=== PATIENT | female | born 1970 | race Caucasian/White ===

== ENCOUNTER 2017-09-09 00:47 | Inpatient (IN) | payer SELFPAY ==
[~2017-09-09] VITALS: Ht 170.2 cm; Wt 65.8 kg
--- NOTE | 2017-09-09 01:26 | NUR ---
PT AMBULATORY TO ER BED 7. PT BIB FAMILY FROM HOME, PT C/O ABD PAIN WITH N/V/D X 3 DAYS. PT PLACED ON COPPER MINER BLASTING. VSS/RESP EVEN UNLABORED/NAD NOTED/SKIN WARM AND DRY/AFEBRILE/AOX4. AWAITING MD YOO.
[2017-09-09] MEDS ORDERED: IV NS 0.9% 1,000 ML BAG IV ONE (02:00)
[2017-09-09] MEDS ORDERED: ONDANSETRON HCL/PF 4 MG/2 ML VIAL IVP ONE (02:00)
--- NOTE | 2017-09-09 02:05 | NUR ---
LAB AT BEDSIDE TO DRAW.
[2017-09-09 02:15] LABS: APPEARANCE,URINE SL CLOUDY (CLEAR); BILIRUBIN,URINE 1+ (NEGATIVE); BLOOD, URINE 3+ Ery/uL (NEGATIVE); COLOR,URINE ORANGE (YELLOW); KETONES,URINE 2+ (NEGATIVE); LEUKOCYTE ESTERASE ,URINE TRACE (NEGATIVE); NITRITE, URINE NEGATIVE (NEGATIVE); PH,URINE 6.5 (5.0-8.0); PROTEIN,URINE 2+ mg/dl (NEGATIVE); UGLUCOSE NEGATIVE (NEGATIVE); UROBILINOGEN,URINE 0.2 EU/dL (0.2)
[2017-09-09 02:15] LABS: BASOPHILS # (AUTO) 0.1 /CMM (0.0-0.2); BASOPHILS % (AUTO) 0.3 % (0.0-2.0); EOSINOPHILS % (AUTO) 0.1 % (0.0-6.0); HEMATOCRIT 39 % (33-45); HEMOGLOBIN 13.3 g/dL (11.5-14.8); MEAN CORPUSCULAR HEMOGLOBIN 29 PG (26.0-33.0); MEAN CORPUSCULAR HGB CONC 34 g/dl (31.0-36.0); MEAN CORPUSCULAR VOLUME 85 fL (82-100); MONOCYTES % (AUTO) 5.4 % (2.0-12.0); NEUTROPHILS # (AUTO) 15.1 /CMM (1.8-8.9); NEUTROPHILS % (AUTO) 83.2 % (43.0-81.0); PLATELET COUNT (AUTO) 397 /CMM (150-450); RDW COEFFICIENT OF VARIATION 14.4 (11.5-15.0); RED BLOOD CELL COUNT(AUTO) 4.58 MIL/uL (4.0-5.2); WHITE BLOOD COUNT (AUTO) 18.2 K/uL (4.3-11.0)
--- NOTE | 2017-09-09 02:19 | NUR ---
AT BEDSIDE FOR EVAL.
[2017-09-09] MEDS ORDERED: ONDANSETRON HCL/PF 4 MG/2 ML VIAL ONE ×2 (02:20→07:29)
--- NOTE | 2017-09-09 02:25 | NUR ---
20G IV X 1 ATTEMPT TO L AC USING ASEPTIC TECH, IV FLUSHES EASILY WITH NS, NO S/S INFILTRATION.
[2017-09-09 02:30] LABS: ALBUMIN 3.7 g/dL (3.4-5.0); BILIRUBIN,DIRECT 0.1 mg/dL (0.0-0.2); BILIRUBIN,TOTAL 0.5 mg/dL (0.2-1.0); CALCIUM, SERUM 9.2 mg/dL (8.5-10.1); CREATININE 0.9 mg/dL (0.6-1.3); POTASSIUM 3.6 mmol/L (3.5-5.1); TOTAL PROTEIN, SERUM 8.6 g/dL (6.4-8.2)
[2017-09-09 02:30] LABS: BACTERIA,URINE 2+ /HPF (None Seen); RBC,URINE 21-50 /HPF (0-2); SQUAMOUS EPITHELIAL CELL,UR Many /HPF (None Seen); WBC,URINE 51-80 /HPF (0-3)
[2017-09-09 02:31] LABS: MUCUS,URINE Moderate /LPF (None Seen)
--- NOTE | 2017-09-09 02:58 | NUR ---
PT TO CT VIA W/C.
[2017-09-09] MEDS ORDERED: METOCLOPRAMIDE HCL 10 MG/2 ML VIAL IV ONE (03:30)
[2017-09-09] MEDS ORDERED: CEFTRIAXONE 1GM BAG (ER ONLY) 1 GM/50 ML PIGGYBACK IV ONE (03:30)
[2017-09-09] MEDS ORDERED: CEFTRIAXONE 1GM BAG (ER ONLY) 50 ML IV ONE (03:34)
--- NOTE | 2017-09-09 03:40 | NUR ---
PANEL PAGER YAZMIN CANDELARIO ORDER.
--- NOTE | 2017-09-09 03:40 | NUR ---
MEDICATED PER MD ORDERS.
--- NOTE | 2017-09-09 06:20 | NUR ---
ULTRASOUND AT BEDSIDE.
--- NOTE | 2017-09-09 07:14 | NUR ---
ENDORSED TO BEREKET ENG FOR VINITA.
--- NOTE | 2017-09-09 07:15 | NUR ---
RECEIVED REPORT FOR VINITA.
[2017-09-09] MEDS ORDERED: HYDROMORPHONE INJ 0.5 MG/0.5 ML SYRINGE ONE (07:29)
[2017-09-09] MEDS ORDERED: HYDROMORPHONE 1 MG/1 ML DISP.SYRIN IV ONE (07:30)
[2017-09-09] MEDS ORDERED: ONDANSETRON HCL/PF 4 MG/2 ML VIAL IV ONE (07:30)
--- NOTE | 2017-09-09 07:36 | NUR ---
PATIENT MEDICATED PER MD ORDERS.
[2017-09-09] MEDS ORDERED: ACETAMINOPHEN 650 MG/SUPP.RECT RC PRN ×2 (08:00→08:15)
[2017-09-09] MEDS ORDERED: MORPHINE SULFATE INJ 2 MG/ML DISP.SYRIN IV PRN (08:00)
[2017-09-09] MEDS ORDERED: ONDANSETRON HCL/PF 4 MG/2 ML VIAL IVP PRN ×3 (08:00→15:00)
[2017-09-09] MEDS ORDERED: PIPERACILLIN /TAZOBACTAM 3.375 G in IV D5W 100 ML IV SCH ×2 (08:00→09:30)
--- NOTE | 2017-09-09 08:11 | NUR ---
REPORT GIVEN TO ESTEFANI CUBA FOR VINITA UPON ADMISSION. PATIENT TRANSPORTED TO - VIA WHEELCHAIR.
[2017-09-09 08:40] VITALS: BP 103/56
[2017-09-09] MEDS ORDERED: FAMOTIDINE/PF INJ 20 MG/2 ML VIAL IV SCH (09:00)
[2017-09-09] MEDS ORDERED: HYDROMORPHONE INJ 0.5 MG/0.5 ML SYRINGE IV PRN ×3 (09:00→15:00)
[2017-09-09] MEDS: FAMOTIDINE/PF INJ 20 MG/2 ML VIAL IV SCH (09:15)
--- NOTE | 2017-09-09 09:24 | NUR ---
MS RN ADMITTING NOTES RECEIVED REPORT FROM ER NURSE ALBERTINA. PT ADMITTED TO UNIT VIA WHEELCHAIR A/O X4 AND VERBALLY RESPONSIVE, NO C/O ABDOMINAL PAIN OR DISCOMFORTS AT THIS TIME. PT WITH DX OF PANCREATITIS, ABDOMINAL PAIN, N & V. NO SIGNIFICANT SECONDARY DIAGNOSIS GIVEN BY PT. PT TRANSFERRED TO BED AND ROUTINE ASSESSMENT DONE. PT ORIENTED TO UNIT AND ROOM. V/S TAKEN AND RECORDED. SKIN IS INTACT. PT ON ROOM AIR, BREATHING EVEN AND UNLABORED. SHE HAS IV ACCESS ON LEFT AC G#20, INTACT AND PATENT, EASILY TO FLUSH WITH NS. ALL SAFETY MEASURES ENFORCED. BED PLACED ON LOW/LOCKED POSITION. CALL LIGHT AND BEDSIDE TABLE PLACED WITHIN EASY REACH OF PT. WILL CONTINUE TO MONITOR PT ACCORDINGLY.
[2017-09-09] MEDS ORDERED: PIPERACILLIN /TAZOBACTAM 3.375 G in IV NS 0.9% 100 ML IV SCH (10:00)
[2017-09-09] MEDS: Potassium Chloride 20 MEQ in IV D5/0.45 NACL 1,000 ML IV PRN (10:33)
--- NOTE | 2017-09-09 12:22 | NUR ---
RN NOTES DR KIM SEEN AND EVALUATED PT WITH ORDER TO DO LAPAROSCOPIC CHOLECYSTECTOMY, POSSIBLE OPEN. DR KIM EXPLAINED THE OPERATION TO PT AND PT VERBALIZED UNDERSTANDING. CONSENT SIGNED AND PRE-OP CHECKLIST DONE. WILL CONTINUE TO MONITOR
[2017-09-09] MEDS ORDERED: LIDOCAINE 1%-EPI 1:100,000 20 ML VIAL ONE (13:05)
[2017-09-09] MEDS ORDERED: BUPIVACAINE 0.25% 75 MG/30 ML VIAL ONE (13:05)
[2017-09-09] MEDS ORDERED: MIDAZOLAM HCL 2 MG/2ML VIAL ONE (13:14)
[2017-09-09] MEDS ORDERED: FENTANYL PF 100MCG/2ML AMPUL ONE (13:14)
[2017-09-09] MEDS ORDERED: ROCURONIUM BROMIDE 50 MG/5 ML ONE (13:14)
--- NOTE | 2017-09-09 13:20 | NUR ---
RN NOTES ASSISTED O.R. NURSE IN TRANSPORTING PT TO SURGERY VIA HER BED.
[2017-09-09 15:00] VITALS: BP 136/75
[2017-09-09] MEDS ORDERED: oxyCODONE/APAP (5/325 MG) 1 UDTAB TABLET PO PRN (15:00)
--- NOTE | 2017-09-09 15:06 | NUR ---
RN NOTES PATIENT RETURNED FROM SURGERY S/P LAPAROSCOPIC CHOLECYSTECTOMY OPERATED BY DR KIM. PT IS DROWSY BUT ABLE TO FOLLOW SIMPLE COMMANDS. V/S CHECKED: BP 136/75, P 85, R 16, T 98.6F AND SP02 95%. PT WITH 4 INCISIONS ON THE ABDOMEN: 2 AT MEDIAL ABDOMEN AND 2 ON RIGHT LOWER QUADRANTS, ALL DRESSINGS CLEAN, DRY, INTACT WITH NO ACTIVE BLEEDING NOTED. WILL CONTINUE TO MONITOR.
--- NOTE | 2017-09-09 15:22 | NUR ---
RN NOTES PER DR KIM, PT TO START ON CLEAR LIQUID, D5 1/2 NS + 20MEQ KCL DECREASED TO 100ML/HR FRO 150ML/HR AND TO START ON ANCEFT 1GM Q8HRS AND DISCONTINUE ABX.ZOSYN IV. FOR CBC,CMP AND LIPASE TOMORROW MORNING. PRN PAIN MEDS ORDERED WELL. WILL CARRY OUT ORDERS.
[2017-09-09 15:30] VITALS: BP 125/72
[2017-09-09 15:45] VITALS: BP 122/68
[2017-09-09 16:00] VITALS: BP 127/67
[2017-09-09] MEDS: CEFAZOLIN SODIUM 1 GM in IV SODIUM CHLORIDE 0.9% 50 ML IV SCH ×2 (16:25→21:05)
--- NOTE | 2017-09-09 18:42 | NUR ---
MS RN CLOSING NOTES PATIENT AWAKE AND RESTING AT MODERATE HIGH BACKREST IN BED. ALERT/ORIENTED X4. VERBALLY RESPONSIVE. S/P LAPAROSCOPIC CHOLECYSTECTOMY TODAY, 4 LAPAROSCOPIC INCISIONS DRESSINGS INTACT WITH NO ACTIVE BLEEDING NOTED. ON ROOM AIR, BREATHING EVEN AND UNLABORED. IV ACCESS ON LEFT AC G#18 INTACT AND PATENT WITH D5 1/2 NS + 20MEQ KCL INFUSING AT 100ML/HR, NO SIGNS OF INFILTRATION NOTED. KEPT HOB ELEVATED. BED IN LOW/LOCKED POSITION WITH SIDE RAILS UP X2. CALL LIGHT AND BEDSIDE TABLE PLACED WITHIN REACH OF PT. WILL ENDORSED TO SHINE WORKER NURSE FOR VINIAT.
--- NOTE | 2017-09-09 19:30 | NUR ---
RN NOTES RECEIVED PATIENT IN BED AWAKE, OA X 3, ABLE TO MAKE NEEDS KNOWN. NO ACUTE DISTRESS NOTED. DENIES ANY PAIN AT THIS TIME. IV SITE PATENT, INTACT; IVF INFUSING ORDERED. ABDOMINAL INCISION DRESSING INTACT; BOWEL SOUNDS PRESENT. SAFETY REMINDERS GIVEN. ON LOW BED WITH BILATERAL UPPER SIDE RAILS UP. CALL PRIDE WITHIN EASY REACH. WILL CONTINUE TO MONITOR.
[2017-09-09 20:00] VITALS: BP 118/71
[2017-09-10] MEDS: Potassium Chloride 20 MEQ in IV D5/0.45 NACL 1,000 ML IV PRN (05:46)
[2017-09-10] MEDS: CEFAZOLIN SODIUM 1 GM in IV SODIUM CHLORIDE 0.9% 50 ML IV SCH ×3 (05:46→20:11)
--- NOTE | 2017-09-10 06:30 | NUR ---
RN NOTES PATIENT ASLEEP, EASILY AROUSABLE. RESPIRATIONS EVEN. NO SIGNS OF PAIN AT THIS TIME. DUE MEDS GIVEN WITH NO ASE NOTED. NEEDS ATTENDED. SAFETY PRECAUTIONS AND COMFORT MEASURES IN PLACE. WILL GIVE REPORT TO DAY SHIFT FOR CONTINUITY OF CARE.
[2017-09-10 06:55] LABS: ALBUMIN 2.6 g/dL (3.4-5.0); BILIRUBIN,TOTAL 0.5 mg/dL (0.2-1.0); CREATININE 0.6 mg/dL (0.6-1.3); POTASSIUM 4.2 mmol/L (3.5-5.1); TOTAL PROTEIN, SERUM 6.7 g/dL (6.4-8.2)
--- NOTE | 2017-09-10 07:18 | NUR ---
MS RN OPENING NOTES PATIENT RECEIVED AWAKE IN BED IN NO ACUTE SIGNS OF DISTRESS. A/O X4. SAME VERBALLY RESPONSIVE. 4 LAPAROSCOPIC INCISIONS DRESSINGS INTACT WITH NO ACTIVE BLEEDING NOTED. ON ROOM AIR, BREATHING EVEN AND UNLABORED. IV ACCESS ON LEFT AC G#18 INTACT AND PATENT WITH D5 1/2 NS + 20MEQ KCL INFUSING @ 100ML/HR, NO SIGNS OF INFILTRATION NOTED. BED IN LOW/LOCKED POSITION WITH SIDE RAILS UP X2. CALL LIGHT AND BEDSIDE TABLE WITHIN REACH OF PT. WILL CONTINUE TO MONITOR.
[2017-09-10 08:00] VITALS: BP 101/59
[2017-09-10] MEDS: FAMOTIDINE/PF INJ 20 MG/2 ML VIAL IV SCH (08:36)
[2017-09-10 08:50] LABS: BASOPHILS # (AUTO) 0.1 /CMM (0.0-0.2); BASOPHILS % (AUTO) 0.4 % (0.0-2.0); EOSINOPHILS # (AUTO) 0.1 /CMM (0.0-0.7); EOSINOPHILS % (AUTO) 0.6 % (0.0-6.0); HEMATOCRIT 31 % (33-45); HEMOGLOBIN 10.6 g/dL (11.5-14.8); LYMPHOCYTES # (AUTO) 3.3 /CMM (0.8-4.8); LYMPHOCYTES % (AUTO) 25.9 % (20.0-44.0); MEAN CORPUSCULAR HEMOGLOBIN 30 PG (26.0-33.0); MEAN CORPUSCULAR HGB CONC 34 g/dl (31.0-36.0); MEAN CORPUSCULAR VOLUME 86 fL (82-100); MONOCYTES % (AUTO) 7.7 % (2.0-12.0); NEUTROPHILS # (AUTO) 8.4 /CMM (1.8-8.9); NEUTROPHILS % (AUTO) 65.4 % (43.0-81.0); PLATELET COUNT (AUTO) 262 /CMM (150-450); RDW COEFFICIENT OF VARIATION 14.4 (11.5-15.0); RED BLOOD CELL COUNT(AUTO) 3.59 MIL/uL (4.0-5.2); WHITE BLOOD COUNT (AUTO) 12.8 K/uL (4.3-11.0)
--- NOTE | 2017-09-10 09:47 | NUR ---
BEREKET PEPPER PATIENT JUST STARTED ON HEMODIALYSIS VIA RIGHT FEMORAL ARTERY. PRE HD V/S: 138/78MMHG, P 103, R 18, T 98.9F, SP02 96%. WILL CONTINUE TO MONITOR Addendum: 09/10/17 at 0953 by WILIAM LOWE RN ERROR: WRONG PTSHANTELLE IS FOR RM [id number]
--- NOTE | 2017-09-10 11:25 | NUR ---
RN NOTES PT SEEN AND EVALUATED BY DR KIM WITH ORDER TO START PT ON REGULAR DIET TOLERATED WILL CONTINUE TO MONITOR.
[2017-09-10 16:00] VITALS: BP 106/67
--- NOTE | 2017-09-10 18:33 | NUR ---
MS RN CLOSING NOTES PATIENT RESTING IN BED AT MODERATE HIGH BACKREST. ALERT/ORIENTED X4. VERBALLY RESPONSIVE. ALL NEEDS AND CARE ATTENDED WELL. ON ROOM AIR, BREATHING EVEN AND UNLABORED. IV ACCESS ON LEFT AC G#18 INTACT AND PATENT WITH D5 1/2 NS + 20MEQ KCL INFUSING AT 100ML/HR, NO SIGNS OF INFILTRATION NOTED. KEPT HOB ELEVATED. BED IN LOW/LOCKED POSITION WITH SIDE RAILS UP X2. CALL LIGHT AND BEDSIDE TABLE PLACED WITHIN REACH OF PT. 4 LAPAROSCOPIC INCISIONS ON THE ABDOMEN DRESSINGS INTACT WITH NO ACTIVE BLEEDING NOTED. WILL ENDORSED TO HIGH RIGGER NURSE FOR VINITA.
--- NOTE | 2017-09-10 19:30 | NUR ---
RN NOTES RECEIVED PATIENT IN BED AWAKE, OA X 3, ABLE TO MAKE NEEDS KNOWN. NO ACUTE DISTRESS NOTED. 5/10 LOW BACK PAIN. NO OTHER PAIN. IV SITE PATENT, INTACT; IVF INFUSING ORDERED. ABDOMINAL INCISION DRESSING INTACT; BOWEL SOUNDS PRESENT. SAFETY REMINDERS GIVEN. ON LOW BED WITH BILATERAL UPPER SIDE RAILS UP. CALL PRIDE WITHIN EASY REACH. WILL CONTINUE TO MONITOR.
[2017-09-10 20:00] VITALS: BP 119/69
--- NOTE | 2017-09-10 22:15 | NUR ---
RN NOTES DR. MENDOSA MADE AWARE OF PATIENT'S BACK PAIN 05/09; NOT RELIEVED BY PERCOCET 5/. WITH NEW ORDER FOR TRAMADOL 50 MG PO Q 6 HOURS PRN, NOTED AND CARRIED OUT.
--- NOTE | 2017-09-10 22:20 | NUR ---
RN NOTES DR. KIM MADE AWARE OF PATIENT'S 05/09 BACK PAIN, NOT RELIEVED BY PERCOCET . PER DR. KIM, HE WILL SEE PATIENT TOMORROW. PATIENT MADE AWARE.
[2017-09-10] MEDS ORDERED: TRAMADOL HCL 50 MG TABLET PO PRN (22:30)
[2017-09-11] MEDS: CEFAZOLIN SODIUM 1 GM in IV SODIUM CHLORIDE 0.9% 50 ML IV SCH ×2 (05:37→12:16)
--- NOTE | 2017-09-11 07:40 | NUR ---
MS RN OPENING NOTE PATIENT IS ALERT AND ORIENTED x4. NO PAIN AT THIS TIME. NO SOB OR DISTRESS NOTED. CALL LIGHT WITHIN REACH. SAFETY MEASURES IMPLEMENTED. ABLE TO COMMUNICATE NEEDS. ON ROOM AIR TOLERATING WELL WITH O2 SATURATION AT 99%. LEFT AC INTACT AND PATENT NO REDNESS OR SWELLING NOTED. PER SKINNING MACHINE FEEDER RN DR. KIM WILL COME SEE PATIENT BEFORE DISCHARGE PLANNING. WILL CONTINUE TO MONITOR THROUGHOUT SHIFT
[2017-09-11 08:00] VITALS: BP 115/68
[2017-09-11] MEDS: FAMOTIDINE/PF INJ 20 MG/2 ML VIAL IV SCH (08:30)
--- NOTE | 2017-09-11 09:12 | NUR ---
MS RN NOTE PATIENT REFUSED MEDICATION THIS MORNING. PATIENT STATED "I'VE HAD TOO MANY MEDICATIONS WHILE BEING IN THE HOSPITAL, I DONT NEED ANYMORE". WILL NOTIFY
[2017-09-11 11:43] LABS: BASOPHILS % (AUTO) 0.2 % (0.0-2.0); EOSINOPHILS # (AUTO) 0.2 /CMM (0.0-0.7); EOSINOPHILS % (AUTO) 1.8 % (0.0-6.0); HEMATOCRIT 35 % (33-45); HEMOGLOBIN 11.8 g/dL (11.5-14.8); LYMPHOCYTES % (AUTO) 35.2 % (20.0-44.0); MEAN CORPUSCULAR HEMOGLOBIN 29 PG (26.0-33.0); MEAN CORPUSCULAR HGB CONC 34 g/dl (31.0-36.0); MEAN CORPUSCULAR VOLUME 86 fL (82-100); MONOCYTES # (AUTO) 0.8 /CMM (0.1-1.30); NEUTROPHILS # (AUTO) 4.6 /CMM (1.8-8.9); NEUTROPHILS % (AUTO) 53.8 % (43.0-81.0); PLATELET COUNT (AUTO) 313 /CMM (150-450); RDW COEFFICIENT OF VARIATION 14.3 (11.5-15.0); RED BLOOD CELL COUNT(AUTO) 4.03 MIL/uL (4.0-5.2); WHITE BLOOD COUNT (AUTO) 8.6 K/uL (4.3-11.0)
[2017-09-11 12:01] LABS: CALCIUM, SERUM 8.6 mg/dL (8.5-10.1); CREATININE 0.7 mg/dL (0.6-1.3); POTASSIUM 3.8 mmol/L (3.5-5.1)
[2017-09-11 12:08] LABS: BILIRUBIN,TOTAL 0.2 mg/dL (0.2-1.0); TOTAL PROTEIN, SERUM 7.4 g/dL (6.4-8.2)
[2017-09-11 12:25] LABS: APPEARANCE,URINE SL CLOUDY (CLEAR); BILIRUBIN,URINE NEGATIVE (NEGATIVE); BLOOD, URINE 1+ Ery/uL (NEGATIVE); COLOR,URINE YELLOW (YELLOW); KETONES,URINE NEGATIVE (NEGATIVE); LEUKOCYTE ESTERASE ,URINE TRACE (NEGATIVE); NITRITE, URINE NEGATIVE (NEGATIVE); PROTEIN,URINE NEGATIVE (NEGATIVE); UGLUCOSE NEGATIVE (NEGATIVE); UROBILINOGEN,URINE 0.2 EU/dL (0.2)
[2017-09-11 12:29] LABS: BACTERIA,URINE Rare /HPF (None Seen); SQUAMOUS EPITHELIAL CELL,UR Few /HPF (None Seen)
--- NOTE | 2017-09-11 15:23 | NUR ---
MS VESSEL SCRAPPER NOTE PATIENT IS ALERT AND ORIENTED x4. NO PAIN AT THIS TIME. NO SOB OR DISTRESS NOTED. CALL LIGHT WITHIN REACH. SAFETY MEASURES IMPLEMENTED. ALL DUE MEDICATIONS GIVEN ORDERED. ALL NURSING CARE NEEDS ATTENDED TO. ALL BELONGINGS WITH PATIENT UPON DISCHARGE AND ACCOUNTED FOR. ALL DISCHARGE INSTRUCTIONS GIVEN TO PATIENT, TEACH BACK RECEIVED. ALL MEDICATION INSTRUCTIONS GIVEN TO PATIENT, TEACH BACK RECEIVED. PRESCRIPTION GIVEN TO PATIENT UPON DISCHARGE. SKIN ISSUES DOCUMENTED IN CHART, HAS 4 ABDOMINAL INCISIONS WITH TUTU. FOLLOW UP APPOINTMENT WITH DR. KIM IN ONE WEEK. IV REMOVED, SKIN INTACT. LEFT VIA PRIVATE CAR WITH BOYFRIEND
== END 2017-09-11 15:10 | disposition home or self-care (01) | DRG 418 ==
LOC: EDBD 00:51 → ER 00:51 → MEDSG2 08:24
PROVIDERS: ADMIT Internal Medicine; ATTEND Internal Medicine
PROC: 0FT44ZZ Resection of Gallbladder, Percutaneous Endoscopic Approach (ICD-10-PCS; principal; 2017-09-09 13:46)
DX: K85.10 Biliary acute pancreatitis without necrosis or infection (principal); K56.7 Ileus, unspecified; K52.9 Noninfective gastroenteritis and colitis, unspecified; N83.202 Unspecified ovarian cyst, left side; K80.20 Calculus of gallbladder without cholecystitis without obstruction; K66.0 Peritoneal adhesions (postprocedural) (postinfection)
CPT/HCPCS: 36415; 76705-TC; 76856-TC; 80048-TC; 80053-TC; 80076-TC; 81000-TC; 83690-TC; 84703-TC; 85025-TC; 87081-TC; 87086-TC; 88304-TC; 88305-TC; A4216; A4606; J0690; J0696; J2250; J2405; J2543; J3010; J3480; J3490; J7030; J7060; Z7610